=== PATIENT | female | born 2000 | race Caucasian/White ===

== ENCOUNTER → 2024-10-21 08:05 | Outpatient (REF) | payer OTHER, SELFPAY | LOC: RAD 08:05 | PROVIDERS: ATTENDING PHYSICIAN Internal Medicine Gastroenterology; FAMILY PHYSICIAN Family Medicine | DX: R11.15 Cyclical vomiting syndrome unrelated to migraine (principal) | CPT/HCPCS: 78264; A9541 ==

== ENCOUNTER 2024-11-05 01:12 | Emergency (ER) | payer OTHER, SELFPAY ==
[2024-11-05 01:15] VITALS: BP 128/90
[2024-11-05] MEDS: ZOFRAN ODT (ORALLY DISINTEGRATING) 4 MG PO ×2 (01:23→05:11)
[2024-11-05 03:29] LABS: % Basophils 0.2 % (0-2); % Immature Granulocytes 0.4 % (0-0.5); % Lymphocytes 6.7 % (20.5-51.1); % Monocytes 6.6 % (1.7-9.3); % Neutrophils 86.1 % (42.2-75.2); Absolute Lymphocytes 0.6 10^3/uL (1.2-3.4); Absolute Monocytes 0.6 10^3/uL (0.1-0.6); Absolute Neutrophils 7.7 10^3/uL (1.4-6.5); Hematocrit 37.1 % (37.0-47.0); Hemoglobin 13.1 g/dL (12.0-16.0); Mean Corp Hgb Conc. 35.3 g/dL (33.0-37.0); Mean Corpuscular Hgb 29.5 pg (27.0-31.0); Mean Corpuscular Volume 83.6 fL (81.0-99.0); Mean Platelet Volume 10.5 fL (7.4-10.4); Nucleated Red Blood Cells % 0 %; Platelet Count 178 10^3/uL (130-400); Red Blood Cell Count 4.44 10^6/uL (4.20-5.40); Red Cell Dist. Width 11.9 % (11.5-14.5)
--- NOTE | 2024-11-05 03:41 | ED.GENMED ---
History of Present Illness
General
Chief Complaint: Abdominal Symptoms
Source: patient
Exam Limitations: none
Time Seen by Provider: 11/05/24 03:17
Nursing documentation reviewed up to this point in time: agreed with
History of Present Illness
History of Present Illness:
Pleasant 24-year-old female presents to the emergency department with nausea and vomiting which she has had intermittently. She has been to GI for similar symptoms. She has been evaluated for these symptoms. Tonight she states that the symptoms
are worse. She has been unable to keep anything down. She states that she is vomiting bile. She also had a low-grade fever tonight
Past History
Past History
ED Past Medical History: Psychiatric (bipolar, ADHD, PTSD) and Other (encoporesis)
ED Past Surgical History: Other (manual dismpaction under anesthsia)
Social History
Tobacco: Non-smoker
Review of Systems
Review of Systems
Allergies reviewed?: Yes
All Other Systems: ROS reviewed and negative except as documented in HPI and ROS
Constitutional: Reports no symptoms
EENT: Reports no symptoms
Respiratory: Reports no symptoms
Cardiac: Reports no symptoms
ABD/GI: Reports abdominal pain, vomiting and diarrhea
: Reports no symptoms
Musculoskeletal: Reports no symptoms
Skin: Reports no symptoms
Neurological: Reports no symptoms
Endocrine: Reports no symptoms
Hematologic/Lymphatic: Reports no symptoms
Psychiatric: Reports no symptoms
Phy Exam
General Physical Exam
General Presentation: well appearing and mild distress
General age: appears stated age
General Skin: warm and dry
General Habitus: normal
General Mental: alert
General Hydration: appears well hydrated
ENT Exam
ENT Exam: EOMI, pharynx normal, neck supple and normocephalic
Eye Exam
Eye Exam: PERRL, cornea clear and conjunctiva normal
Cardiovascular Exam
Cardiovascular Exam: regular rate/rhythm, no edema, no murmur and normal peripheral pulses
Pulmonary Exam
Pulmonary Exam: lungs clear, no respiratory distress, no rales, no crackles, no rhonchi, no stridor, no wheezing and no cough
Gastrointestinal Exam
Gastrointestinal Exam: normal bowel sounds, non tender, soft, no organomegaly, no pulsatile mass and non distended
Neurological Exam
Neurological Exam: alert, oriented x3, no motor deficits and speech normal
Musculoskeletal Exam
Musculoskeletal Exam: full ROM and no edema
Skin Exam
Skin Exam: normal color, warm/dry, no rash and no petechia
Psychiatric Exam
Psychiatric Exam: normal mood/affect
Course
Orders/Labs/Results
Orders:
Orders
11/05/24 01:19
Test Result ONCE
11/05/24 01:20
Ondansetron Orally Disint [Zofran Odt (Orally Disintegrating)] 4 mg .ROUTE .ST-MED ONE
11/05/24 01:23
Ondansetron Orally Disint [Zofran Odt (Orally Disintegrating)] 4 mg PO NOW STA
11/05/24 03:21
Complete Blood Count/With Diff Urgent
Comprehensive Metabolic Panel Routine
HCG, Serum Qualitative Screen Urgent
Influenza A+B Rapid Molecular Urgent
[place] Source: Nasal Swab
Specimen Description:
Abnormal Lab Results
11/05/24
03:21
MPV 10.5 H fL
(7.4-10.4)
Absolute Neuts (auto) 7.7 H 10^3/uL
(1.4-6.5)
Absolute Lymphs (auto) 0.6 L 10^3/uL
(1.2-3.4)
Neutrophils % 86.1 H %
(42.2-75.2)
Lymphocytes % 6.7 L %
(20.5-51.1)
Potassium 3.4 L mmol/L
(3.5-5.1)
Carbon Dioxide 19 L mmol/L
(22-30)
Glucose 123 H mg/dl
(70-99)
11/05/24 03:21
11/05/24 03:21
Vital Signs
Initial and Last Documented VS:
Initial Vital Signs
Temp Pulse Resp BP Pulse Ox
99.8 F 104 22 128/90 100
11/05/24 01:15 11/05/24 01:15 11/05/24 01:15 11/05/24 01:15 11/05/24 01:15
Last Documented Vital Signs
Temp Pulse Resp BP Pulse Ox
99.8 F 104 22 128/90 100
11/05/24 01:15 11/05/24 01:15 11/05/24 01:15 11/05/24 01:15 11/05/24 01:15
*Critical Care Note
Total Time (30-74mins, 75-104mins- exclusive of procedures): Not Applicable
Update Note
Update Note:
Patient has influenza. She states she is feeling better after fluids and Zofran.
ED Attending Note
-
Portions of this chart may have been created with voice recognition software.� Occasional wrong word or��sound alike� substitutions may have occurred due to the inherent limitations of voice recognition software.
Discharge Plan
Departure
Patient Disposition: Home (Routine Discharge)
Date of Disposition: 11/05/24
Time of Disposition: 04:48
Patient with high blood pressure during this ER visit?: Yes
Condition: Good
Discharge Problem:
Influenza, Nausea & vomiting
Instructions: Flu in adults - ED discharge instructions, Abdominal Pain, BLOOD PRESSURE
Prescriptions:
New
ondansetron HCl 4 mg tablet
4 mg PO Q8H 5 Days Qty: 15 0RF
No Action
docusate sodium 100 MG capsule
100 mg PO BIDPRN PRN (Reason: Constipation) Qty: 20 0RF
hydroxyzine pamoate [Vistaril] 50 MG capsule
50 mg PO DAILY
dextroamphetamine-amphetamine [Adderall XR] 20 MG capsule,extended release 24hr
20 mg PO DAILY
quetiapine [Seroquel] 300 MG tablet
300 mg PO HS
Patient Comments:
1 tab by mouth at bedtime along with 200mg. Total dose 500mg
quetiapine [Seroquel] 200 MG tablet
200 mg PO BID
Patient Comments:
1 tab in morning and 1 tab at bedtime.
fluticasone propionate 1 SPRAY spray,suspension
2 spray intranasal DAILY
topiramate [Trokendi XR] 100 MG capsule,extended release 24hr
100 mg PO HS
peg 3350-electrolytes [Golytely] 1 EACH powder in packet
1 packet PO NOW Qty: 1 0RF
Rx Instructions:
mix w/ 64 oz fluid and drink over 2 hrs
Referrals:
Hallie Velazquez MD [Family Provider] -
Activity Restrictions/Additional Instructions:
It was a pleasure meeting you and taking part in your care. We hope for your continued healing and wellness.
Please read discharge instructions in their entirety. However, they are for general education and may not describe your exact diagnosis at discharge. Information on your ER visit and medical conditions were discussed with you along with appropriate
follow up information...
If indicated, please take your medications as instructed and indicated on discharge paperwork.
Please schedule a follow up appointment as directed. Call to schedule an appointment
Please return to the emergency department with ANY change in, persisting, or worsening of symptoms. If any of your symptoms do not improve, or persist, or become more severe within 6-12 hours, please return to the emergency department for further
care.
Please return to the emergency department if you develop a headache, neck pain/stiffness, fever greater than 100.4F, chest pain, shortness of breath, persistent nausea, vomiting, slurred speech, difficulty walking, numbness/tingling, weakness, signs
of infection or any other symptoms that are worrisome to you.
If you have any questions or concerns please do not hesitate to call the Hospital at or E-mail me directly at [email or web address]
Interventions
Interventions:
*Risk Screen - Suicide Last Done: 11/05/24 01:15
*Neglect/Abuse Screening Last Done: 11/05/24 01:15
ED- Fall Risk Assessment Last Done: 11/05/24 03:00
[facility] Assessment Last Done: 11/05/24 03:00
Discharge Date and Time
Print Language: JAPANESE
[2024-11-05 03:42] LABS: ALT (SGPT) 20 U/L (0-35); AST (SGOT) 29 U/L (14-36); Albumin 4.6 g/dl (3.5-5.0); Alkaline Phosphatase 72 U/L (38-126); Blood Urea Nitrogen 13 mg/dl (7-17); Carbon Dioxide 19 mmol/L (22-30); Chloride 98 mmol/L (98-107); Glucose 123 mg/dl (70-99); Potassium 3.4 mmol/L (3.5-5.1); Sodium 135 mmol/L (135-145); Total Bilirubin 0.6 mg/dl (0.2-1.3); Total Protein 7.8 g/dl (6.3-8.2); eGFR > 60.00
[2024-11-05 03:51] LABS: HCG, Serum Qualitative Screen Negative
[2024-11-05 05:00] VITALS: BP 100/81
[2024-11-05 05:30] VITALS: BP 101/78
== END 2024-11-05 05:30 | disposition home or self-care (01) ==
LOC: EMR 01:12
PROVIDERS: EMERGENCY PHYSICIAN Student in an Organized Health Care Education/Training Program; FAMILY PHYSICIAN Family Medicine
DX: J10.1 Influenza due to other identified influenza virus with other respiratory manifestations (principal); R11.2 Nausea with vomiting, unspecified; R03.0 Elevated blood-pressure reading, without diagnosis of hypertension
CPT/HCPCS: 99283; 80053; 84703; 85025; 87502